=== PATIENT | female | born 1940 | race Caucasian/White ===

== ENCOUNTER 2016-06-26 07:26 | Emergency (ER) | payer MEDICARE ==
[2016-06-26] MEDS ORDERED: FENTANYL 100 MCG/2 ML VIAL ONE (08:00)
[2016-06-26] MEDS ORDERED: HYDROcodone/APAP 5/325 MG 1 TAB TABLET PO ONE (08:01)
--- NOTE | 2016-06-26 08:48 | ER NURSING DOCUMENTATION ---
Nurse's Notes [facility] Name:Mary Porter Age:76 yrs Sex:Female :1940 Arrival Date:06/26/2016 Time:07:26 Bed6 Private MD:Urvashi Fitzgerald Diagnosis:Shoulder Injury Presentation: 06/26 07:29 Transition of care: patient was not received from another setting of care. tg 07:29 Acuity: NARCISO 4 tg 07:29 Method Of Arrival: Private Vehicle tg 07:37 Presenting complaint: Patient states: Lifting something a few days ago, felt her right tg shoulder "pop." Pain has become much worse in right lateral neck, radiates down to right shoulder. Has tried OTC pain meds with no success. Triage Assessment: 07:46 General: Appears uncomfortable, Behavior is cooperative. Pain: Complains of pain in tg posterior aspect of right shoulder and right side of neck. Neuro: Level of Consciousness is awake, alert. Derm: Skin is pink, warm & dry. Musculoskeletal: Range of motion limited in right shoulder. Historical: - Allergies: Codeine; Compazine; - Home Meds: 1. Imodium A-D oral 2. calcium vit D - PMHx: IRRITABLE BOWEL SYNDROME; Acute Neck Pain (November 25, 2014); - PSHx: CHOLECYSTECTOMY; HYSTERECTOMY; APPENDECTOMY; back surgery; stomach 2/3 removed; - Tetanus: < 10 years. - Ebola Screening: : Patient negative for fever greater than or equal to 101.5 degrees Fahrenheit, and additional compatible Ebola Virus Disease symptoms. Patient denies exposure to infectious person. Patient denies travel to an Ebola-affected area in the 21 days before illness onset. No symptoms or risks identified at this time. . - Immunization history: Flu Vaccine < 1 year. - Social history: Smoking status: Patient states was never smoker of tobacco. Screenin:40 Infectious Disease Risk Unable to Obtain. Abuse screen: Denies threats or abuse. Denies tg injuries from another. Nutritional screening: No deficits noted. Vital Signs: 07:30 BP 126 / 46; Pulse 86; Resp 16; Temp 97.4; Pulse Ox 97% ; Weight 58.97 kg; Height 5 ft. jt 6 in. (167.64 cm); Pain 8/10; 07:30 Body Mass Index 20.98 (58.97 kg, 167.64 cm) jt ED Course: 07:28 Patient arrived in ED. jt 07:28 Urvashi Fitzgerald MD is Private Physician. jt 07:28 Rajeev Robles RN is Primary Nurse. tg 07:29 Triage completed. tg 07:54 Mikal Kelley MD is Attending Physician. jm 07:57 Valuables Remains with patient. tg 08:00 Patient moved to radiology. pm1 08:12 Justice Agarwal DO, Jus Vasquez MD is Referral Physician. jm 08:13 Patient moved back from radiology. pm1 08:47 Sling applied to right arm. tg Administered Medications: 07:56 Drug: fentaNYL [place] 50 mcg; Route: Intranasal; Site: left nare; tg 08:34 Follow up: Response: Pain is decreased tg 07:57 Drug: HYDROcodone-acetaminophen 5 mg-325 mg 1 tabs; Route: PO; tg 08:34 Follow up: Response: Pain is decreased tg Outcome: 08:12 Discharge ordered by . gabby 08:46 Discharged to home ambulatory, with family. tg 08:46 Condition: stable 08:46 Discharge Assessment: Patient awake and alert. 08:46 Instructed on discharge instructions, follow up and referral plans. medication usage, Prescriptions given X 1. 08:47 Patient left the ED. tg Signatures: Rajeev Robles RN RN tg Mikal Kelley MD MD jm McBride, Philisha pm1 Kasia Martinezt
--- NOTE | 2016-06-26 08:48 | ER PHYSICIAN DOCUMENTATION ---
Physician Documentation [facility] Name:Mary Porter Age:76 yrs Sex:Female :1940 Arrival Date:06/26/2016 Time:07:26 Bed6 Private MD:Urvashi Fitzgerald ED, John Disposition: 06/26/16 08:12 Discharged to Home/Self Care. Impression: Shoulder Injury. - Condition is Good. - Discharge Instructions: SHOULDER PAIN (Uncertain Cause). - Prescriptions for Hydrocodone- Acetaminophen 5-325 mg Oral Tablet - take 1 tablet by ORAL route every 6 hours As needed; 20 tablet. - Medical Reconciliation form form. - Follow up: Justice Agarwal DO, Jus Vasquez MD; When: 4- 6 days; Reason: Continuance of care. - Problem is new. - Symptoms have improved. HPI: 06/26 08:00 This 76 yrs old Female presents to ER via Private Vehicle with complaints of jm Shoulder Pain - RIGHT. 08:00 The patient or guardian complains of pain, that is acute. right shoulder and right jm trapezius. Context: resulted from lifting or carrying, The patient experiences decreased range of motion, The patient reports no obvious deformity. Onset: The symptom(s)/episode began/occurred 4 day(s) ago, and became worse today. Associated signs and symptoms: Pertinent negatives: Numbness in neck and right arm. The patient has not experienced similar symptoms in the past. Pt was reaching for something and heard a few pops in her shoulder and then had immediate R shoulder pain. This happened a few days ago and every night, it has been getting worse. . Historical: - Allergies: Codeine; Compazine; - Home Meds: 1. Imodium A-D oral 2. calcium vit D - PMHx: IRRITABLE BOWEL SYNDROME; Acute Neck Pain (November 25, 2014); - PSHx: CHOLECYSTECTOMY; HYSTERECTOMY; APPENDECTOMY; back surgery; stomach 2/3 removed; - Tetanus: < 10 years. - Ebola Screening: : Patient negative for fever greater than or equal to 101.5 degrees Fahrenheit, and additional compatible Ebola Virus Disease symptoms. Patient denies exposure to infectious person. Patient denies travel to an Ebola-affected area in the 21 days before illness onset. No symptoms or risks identified at this time. . - Immunization history: Flu Vaccine < 1 year. - Social history: Smoking status: Patient states was never smoker of tobacco. ROS: 08:00 Constitutional: Negative for fatigue, fever. 08:00 MS/extremity: Positive for injury or acute deformity, decreased range of motion. 08:00 Neuro: Negative for numbness, tingling. Exam: 08:00 Constitutional: The patient appears alert, awake. jm 08:00 Neck: External neck: tenderness, that is moderate, of the right trapezius, C-spine: appears grossly normal, ROM/movement: is normal. 08:00 Cardiovascular: Rate: normal, Rhythm: regular. 08:00 Musculoskeletal/extremity: Extremities: grossly normal except: noted in the right shoulder: decreased ROM, pain, Pulses: are normal with no appreciated deficits, normal distal repair welder. . 08:00 Neuro: Memory: is normal, Sensation: is normal. Vital Signs: 07:30 BP 126 / 46; Pulse 86; Resp 16; Temp 97.4; Pulse Ox 97% ; Weight 58.97 kg; Height 5 ft. jt 6 in. (167.64 cm); Pain 8/10; 07:30 Body Mass Index 20.98 (58.97 kg, 167.64 cm) jt MDM: 07:54 Patient medically screened. 08:00 Differential diagnosis: tendonitis, DJD, rotator cuff injury. Data reviewed: vital jm signs, nurses notes, radiologic studies, and as a result, I will discharge patient. Test interpretation: by ED physician or midlevel provider: plain radiologic studies. Counseling: I had a detailed discussion with the patient and/or guardian regarding: the historical points, exam findings, and any diagnostic results supporting the discharge/admit diagnosis, radiology results, the need for outpatient follow up, a orthopedic surgeon. ED course: NO fx noted. Pt slinged and told to f/u w ortho. . 06/26 08:34 Order name: ORTHO: Sling; Complete Time: 08:34 tg Dispensed Medications: 07:56 Drug: fentaNYL [place] 50 mcg; Route: Intranasal; Site: left nare; tg 08:34 Follow up: Response: Pain is decreased tg 07:57 Drug: HYDROcodone-acetaminophen 5 mg-325 mg 1 tabs; Route: PO; tg 08:34 Follow up: Response: Pain is decreased tg Signatures: Rajeev Robles RN RN Mikal Huddleston MD MD jm
--- NOTE | 2016-06-27 17:52 | RADIOLOGY REPORT ---
Three views of the right shoulder demonstrate no displaced fracture or dislocation. The visualized joints appear unremarkable. IMPRESSION: No displaced injury is identified. If clinically indicated, further evaluation and/or follow-up may be of benefit. DELMAR
== END 2016-06-26 08:48 | disposition home or self-care (01) ==
LOC: ER 07:26
DX: S49.81XA Other specified injuries of right shoulder and upper arm, initial encounter (principal); M54.2 Cervicalgia; X50.0XXA Overexertion from strenuous movement or load, initial encounter; Z79.899 Other long term (current) drug therapy
CPT/HCPCS: 99283; 99284

== ENCOUNTER 2016-06-29 14:40 | Emergency (ER) | payer MEDICARE ==
[2016-06-29] MEDS ORDERED: HYDROcodone/APAP 5/325 MG 1 TAB TABLET PO ONE (15:11)
[2016-06-29] MEDS ORDERED: ONDANSETRON ODT 4 MG TAB.RAPDIS ONE (15:11)
--- NOTE | 2016-06-29 15:50 | ER PHYSICIAN DOCUMENTATION ---
Physician Documentation [facility] Name:Mary Porter Age:76 yrs Sex:Female :1940 Arrival Date:06/29/2016 Time:14:40 Bed1 Private MD:Urvashi Fitzgerald ED, John Disposition: 06/29/16 15:39 Discharged to Home/Self Care. Impression: Shoulder Injury. - Condition is Good. - Discharge Instructions: SHOULDER PAIN (Uncertain Cause). - Prescriptions for Percocet 5- 325 mg Oral Tablet - take 1 tablet by ORAL route every 6 hours As needed; 20 tablet. Zofran 4 mg Oral Tablet - take 1 tablet by ORAL route every 12 hours .; 20 tablet. - Medical Reconciliation form form. - Follow up: Jus Vasquez MD; When: 1 week; Reason: Continuance of care. - Problem is new. - Symptoms are unchanged. HPI: 06/29 16:08 This 76 yrs old Female presents to ER via Private Vehicle with complaints of jm Shoulder Injury - RT. 16:08 The patient or guardian complains of an injury, pain. The complaint affects the patient's dominant side (right). Context: resulted from lifting up heavy items. . Onset: The symptom(s)/episode began/occurred last week. Associated signs and symptoms: Pertinent positives: Weakness in right hand. The patient has been recently seen by a physician: Dr. Vasquez, who wants to start PT and see pt next week. . Pt here mostly b/c the vicodin that I gave her a few days ago is not helping w the pain and she is nauseated from it. . Historical: - Allergies: Codeine; Compazine; - Home Meds: 1. Imodium A-D oral 2. calcium vit D 3. Hydrocodone-Acetaminophen 5-325 mg Oral - PMHx: IRRITABLE BOWEL SYNDROME; - PSHx: CHOLECYSTECTOMY; HYSTERECTOMY; APPENDECTOMY; back surgery; stomach 2/3 removed; - Tetanus: unknown. - Ebola Screening: : No symptoms or risks identified at this time. . - Immunization history: Flu Vaccine. - Social history: Smoking status: Patient uses tobacco products and is smoker, current status unknown. ROS: 16:08 Constitutional: Negative for fever. jm 16:08 Neck: Positive for stiffness, swelling. 16:08 MS/extremity: Positive for pain. 16:08 Neuro: Negative for numbness. Exam: 16:08 Constitutional: The patient appears alert, awake, comfortable. 16:08 Psych: Behavior/mood is pleasant, anxious, Affect is calm. Vital Signs: 15:14 BP 153 / 62; Pulse 79; Resp 20 S; Temp 98.3(O); Pulse Ox 94% on R/A; Weight 58.97 kg; ma Height 5 ft. 5 in. (165.10 cm); Pain 8/10; 15:14 Body Mass Index 21.63 (58.97 kg, 165.10 cm) ma MDM: 15:15 Patient medically screened. 16:10 Differential diagnosis: tendonitis, rotator cuff pain. Shoulder impingement syndrome. gabby Data reviewed: vital signs, nurses notes, old medical records, and as a result, I will discharge patient. Counseling: I had a detailed discussion with the patient and/or guardian regarding: the historical points, exam findings, and any diagnostic results supporting the discharge/admit diagnosis, the need for outpatient follow up, a orthopedic surgeon. 16:10 ED course: Will do trial of percocet and add zofran. Pt has not yet tried her jm amitriptyline, so I encouraged her to do so. . Dispensed Medications: 15:05 Drug: Zofran 4 mg; Route: PO; ma 15:48 Follow up: Response: Nausea is decreased ma 15:12 Drug: HYDROcodone-acetaminophen 5 mg-325 mg 1 tabs; Route: PO; ma 15:48 Follow up: Response: Pain is decreased ma Signatures: Kalyn Gu RN RN ma Meyer, John, MD MD jm
--- NOTE | 2016-06-29 15:50 | ER NURSING DOCUMENTATION ---
Nurse's Notes [facility] ([place], [place]) Name:Mary Porter Age:76 yrs Sex:Female :1940 Arrival Date:06/29/2016 Time:14:40 Bed1 Private MD:Urvashi Fitzgerald Diagnosis:Shoulder Injury Presentation: 06/29 14:45 Acuity: NARCISO 3 st 14:48 Presenting complaint: Patient states: Pt sent home with Vicodin for pain s/p shoulder ma injury States hasnt been able to tolerate Vicodin, states gets dry heaves when ever she takes it Denies nausea now. Transition of care: Home. 14:48 Method Of Arrival: Private Vehicle wy Triage Assessment: 15:12 General: Appears in no apparent distress, Behavior is cooperative. Pain: Complains of ma pain in Right shoulder. Musculoskeletal: Circulation, motion, and sensation intact. Injury Description: Bruise was sustained 7 days. Historical: - Allergies: Codeine; Compazine; - Home Meds: 1. Imodium A-D oral 2. calcium vit D 3. Hydrocodone-Acetaminophen 5-325 mg Oral - PMHx: IRRITABLE BOWEL SYNDROME; - PSHx: CHOLECYSTECTOMY; HYSTERECTOMY; APPENDECTOMY; back surgery; stomach 2/3 removed; - Tetanus: unknown. - Ebola Screening: : No symptoms or risks identified at this time. . - Immunization history: Flu Vaccine. - Social history: Smoking status: Patient uses tobacco products and is smoker, current status unknown. Screenin:14 Infectious Disease Risk None. Abuse screen: Denies threats or abuse. Nutritional ma screening: No deficits noted. Assessment: 14:58 Reassessment: Pt given crackers and juice with meds Reassurance given Pt able to ma tolerate meds and snack without nausea. Vital Signs: 15:14 BP 153 / 62; Pulse 79; Resp 20 S; Temp 98.3(O); Pulse Ox 94% on R/A; Weight 58.97 kg; ma Height 5 ft. 5 in. (165.10 cm); Pain 8/10; 15:14 Body Mass Index 21.63 (58.97 kg, 165.10 cm) wy ED Course: 14:42 Patient arrived in ED. ds 14:42 Urvashi Fitzgerald MD is Private Physician. ds 14:[address] 14:48 Kalyn Gu, RN is Primary Nurse. ma 15:14 Valuables Given to family. Patient has correct armband on for positive identification. ma Bed in low position. Call light in reach. Adult w/ patient. 15:15 Mikal Kelley MD is Attending Physician. gabby 15:19 EKG done. (by ED staff). Reviewed by Mikal Kelley MD. ma 15:38 Jus Vasquez MD is Referral Physician. Administered Medications: 15:05 Drug: Zofran 4 mg; Route: PO; ma 15:48 Follow up: Response: Nausea is decreased ma 15:12 Drug: HYDROcodone-acetaminophen 5 mg-325 mg 1 tabs; Route: PO; ma 15:48 Follow up: Response: Pain is decreased ma Outcome: 15:39 Discharge ordered by . 15:49 Discharged to home wy 15:49 Condition: stable 15:49 Discharge instructions given to patient, significant other, Instructed on discharge instructions, follow up and referral plans. medication usage, Demonstrated understanding of instructions, medications, Prescriptions given X 2. 15:49 Patient left the ED. wy 06/30 09:44 Discharge F/U Call: Spoke with: patient. Are you having any pain? yes. Pain level is lp 2 / 10 How are you managing your pain? Patient is taking medication: Percocet Have you filled your prescriptions? yes. Have you made a f/u appointment? yes Signatures: Xiomara Oconnor, Kalyn Nails RN, RN Camelia Guzmán ma, RN RN lp Srot, Birgit, Reg Reg Mikal Omer MD MD jm
== END 2016-06-29 15:50 | disposition home or self-care (01) ==
LOC: ER 14:40
DX: M79.621 Pain in right upper arm (principal); S49.81XD Other specified injuries of right shoulder and upper arm, subsequent encounter; R11.0 Nausea; T40.605A Adverse effect of unspecified narcotics, initial encounter; Z79.899 Other long term (current) drug therapy; F17.210 Nicotine dependence, cigarettes, uncomplicated
CPT/HCPCS: 93005; 99281; 99283